=== PATIENT | male | born 1960 | race Asian ===

== ENCOUNTER 2021-08-26 17:35 | Inpatient (IN) | payer OTHER ==
[~2021-08-26] VITALS: Ht 175.3 cm; Wt 77.6 kg
[~2021-08-26 17:35] MED LIST: VANCOMYCIN 1.25 GM in IV D5W 250 ML IV ONE
--- NOTE | 2021-08-26 17:45 | NUR ---
BIB RA39 FROM HOME FOR SEVERE BILATERAL FOOT ULCERS/GANGRENE, R WORSE THAN L. PER EMS, BS WAS 250. AAOX2, BREATHING EVEN AND UNLABORED. TO ER BED 7, ON MONITOR. MD AT BEDSIDE.
--- NOTE | 2021-08-26 17:50 | NUR ---
MOVE SHEET SUBMITTED
[2021-08-26] MEDS ORDERED: IV NS 0.9% 1,000 ML IV ONE (18:00)
[2021-08-26] MEDS ORDERED: VANCOMYCIN HCL 1.25 GM in IV D5W 260 ML IV ONE (18:00)
--- NOTE | 2021-08-26 18:00 | NUR ---
BS 494. AWARE
--- NOTE | 2021-08-26 19:03 | NUR ---
URINE SAMPLE OBTAINED AND SENT TO LAB
[2021-08-26 19:13] LABS: BILIRUBIN,TOTAL 0.6 mg/dL (0.2-1.0); CALCIUM, SERUM 9.1 mg/dL (8.5-10.1); POTASSIUM 4.4 mmol/L (3.5-5.1)
[2021-08-26 19:20] LABS: ALBUMIN 1.4 g/dL (3.4-5.0)
[2021-08-26 19:41] LABS: BILIRUBIN,URINE NEGATIVE (NEGATIVE); COLOR,URINE YELLOW (YELLOW); LEUKOCYTE ESTERASE ,URINE NEGATIVE (NEGATIVE); NITRITE, URINE NEGATIVE (NEGATIVE); PH,URINE 5.5 (5.0-8.0); PROTEIN,URINE NEGATIVE (NEGATIVE); UGLUCOSE >=1000 mg/dL (NEGATIVE); UROBILINOGEN,URINE 0.2 EU/dL (0.2)
--- NOTE | 2021-08-26 19:41 | NUR ---
COVID SAMPLE OBTAINED AND SENT TO LAB
[2021-08-26 19:48] LABS: BACTERIA,URINE None seen /HPF (None Seen); MUCUS,URINE Few /LPF (None Seen); RBC,URINE 81-100 /HPF (0-2); SQUAMOUS EPITHELIAL CELL,UR Few /HPF (None Seen)
[2021-08-26 20:11] LABS: BASOPHILS % (AUTO) 0.2 % (0.0-2.0); EOSINOPHILS % (AUTO) 0.1 % (0.0-6.0); HEMATOCRIT 35 % (39-51); HEMOGLOBIN 11.4 g/dL (13.5-17.5); LYMPHOCYTES # (AUTO) 1.2 K/uL (0.8-4.8); LYMPHOCYTES % (AUTO) 9.1 % (20.0-44.0); MEAN CORPUSCULAR HGB CONC 33 g/dl (31.0-36.0); MEAN CORPUSCULAR VOLUME 90 fL (80-96); MONOCYTES # (AUTO) 0.6 K/uL (0.1-1.30); MONOCYTES % (AUTO) 4.2 % (2.0-12.0); NEUTROPHILS # (AUTO) 11.4 K/uL (1.8-8.9); NEUTROPHILS % (AUTO) 86.4 % (43.0-81.0); PLATELET COUNT (AUTO) 317 K/uL (150-450); RED BLOOD CELL COUNT(AUTO) 3.82 MIL/uL (4.5-6.0); WHITE BLOOD COUNT (AUTO) 13.2 K/uL (4.3-11.0)
--- NOTE | 2021-08-26 20:26 | NUR ---
PANEL PAGED PER DR CARUSO.
[2021-08-26] MEDS ORDERED: Z GUARD REMEDY 4 OZ OINT TP PRN (21:00)
[2021-08-26] MEDS ORDERED: HYDROCODONE/APAP 5/325MG TABLET PO PRN (21:00)
[2021-08-26] MEDS ORDERED: MAG HYDROX/AL HYDROX/SIMETH 30 ML UDC PO PRN (21:00)
[2021-08-26] MEDS ORDERED: MAGNESIUM HYDROXIDE 30 ML UDC PO PRN (21:00)
[2021-08-26] MEDS ORDERED: ONDANSETRON HCL/PF 4 MG/2 ML VIAL IVP PRN (21:00)
[2021-08-26] MEDS ORDERED: ACETAMINOPHEN 325 MG TABLET PO PRN (21:00)
[2021-08-26] MEDS ORDERED: DEXTROSE 50%-WATER 50 ML DISP.SYRIN IV PRN (21:00)
--- NOTE | 2021-08-26 21:38 | NUR ---
BED 323-2
--- NOTE | 2021-08-26 21:42 | NUR ---
CALLED FLOOR, SAID NURSE IS BUSY. WILL GIVE BACK CALL IN 15 MINS
--- NOTE | 2021-08-26 21:56 | NUR ---
REPORT GIVEN TO JAMES GANDHI
--- NOTE | 2021-08-26 22:24 | NUR ---
PT TRANSFERRED TO FLOOW FOLLOWING ACLS PROTOCOL. PT REMAINED STABLE THROUGHOUT TRANSFER.
[2021-08-26] MEDS ORDERED: MEROPENEM 500 MG in IV NS 0.9% 50 ML IV ONE (22:30)
--- NOTE | 2021-08-26 22:50 | NUR ---
RN NOTES RECEIVED PATIENT FROM ER WITH DX. WET TO DRY GANGRENE A/OX3, BILATERAL FOOT GANGRENE, SKIN ASSESSMENT DONE, ADMISSION INSTRUCTIONS DONE, CALL LIGHT WITHIN REACH, SIDERAILSUPX2, WILL CONTINUE TO MONITOR
[2021-08-26 23:00] VITALS: BP 147/86
[2021-08-26] MEDS: INSULIN REGULAR, HUMAN 100 UNIT/ML 3 ML VIAL SQ PRN (23:32)
[2021-08-26] MEDS: ENOXAPARIN SODIUM 40 MG/0.4 ML DISP.SYRIN SQ SCH (23:40)
[2021-08-26] MEDS: BLOOD SUGAR DIAGNOSTIC 1 EACH STRIP IN SCH (23:41)
[2021-08-26] MEDS ORDERED: MEROPENEM 500 MG VIAL IV ONE (23:56)
--- NOTE | 2021-08-27 | NUR ---
RN NOTES BLOOD SUGAR-433 20 UNITS OF INSULIN GIVEN PER INSULIN PROTOCOL, RAUL RAMIREZ-PACKING INSPECTOR IS AWARE, NO FURTHER ORDER
[2021-08-27] MEDS: IV NS 0.9% 1,000 ML IV PRN ×2 (00:05→19:16)
[2021-08-27] MEDS: BLOOD SUGAR DIAGNOSTIC 1 EACH STRIP IN SCH ×3 (06:06→17:36)
--- NOTE | 2021-08-27 06:23 | NUR ---
RN NOTES AWAKE, DENIES PAIN, NO SOB, CALL LIGHT WITHIN REACH, SIDERAILSUPX2, PT. NEEDS ATTENDED
[2021-08-27 06:27] LABS: BASOPHILS % (AUTO) 0.1 % (0.0-2.0); EOSINOPHILS % (AUTO) 0.5 % (0.0-6.0); HEMATOCRIT 31 % (39-51); HEMOGLOBIN 10.5 g/dL (13.5-17.5); LYMPHOCYTES # (AUTO) 1.8 K/uL (0.8-4.8); LYMPHOCYTES % (AUTO) 13.6 % (20.0-44.0); MEAN CORPUSCULAR HGB CONC 34 g/dl (31.0-36.0); MEAN CORPUSCULAR VOLUME 88 fL (80-96); MONOCYTES # (AUTO) 0.6 K/uL (0.1-1.30); MONOCYTES % (AUTO) 4.7 % (2.0-12.0); NEUTROPHILS # (AUTO) 10.8 K/uL (1.8-8.9); NEUTROPHILS % (AUTO) 81.1 % (43.0-81.0); PLATELET COUNT (AUTO) 296 K/uL (150-450); RED BLOOD CELL COUNT(AUTO) 3.48 MIL/uL (4.5-6.0); WHITE BLOOD COUNT (AUTO) 13.4 K/uL (4.3-11.0)
[2021-08-27] MEDS: INSULIN REGULAR, HUMAN 100 UNIT/ML 3 ML VIAL SQ PRN ×2 (06:41→11:45)
[2021-08-27 06:54] LABS: MAGNESIUM 1.9 mg/dL (1.8-2.4); PHOSPHORUS 3.3 mg/dL (2.5-4.9)
[2021-08-27] MEDS ORDERED: MEROPENEM 500 MG in IV NS 0.9% 50 ML IV ONE (07:30)
[2021-08-27 07:49] LABS: THYROID STIMULATING HORMONE 1.801 uIU/mL (0.358-3.74)
--- NOTE | 2021-08-27 07:56 | NUR ---
MS RN OPENING NOTE PATIENT IS AWAKE IN BED. A/O X3. NO S/SX OF ACUTE DISTRESS. NO SOB. BREATHING IS EVEN AND UNLABORED ON ROOM AIR, TOLERATING WELL. IV ACCESS LFA #20 AND RAC#18 PATENT AND INTACT WITH NS RUNNING @75MLS/HR. SAFETY MEASURES IN PLACE WITH BED LOCKED AND IN LOW POSITION WITH SIDE RAILS UP X 2. WILL CONTINUE TO MONITOR PATIENT THROUGHOUT SHIFT.
[2021-08-27] MEDS: PANTOPRAZOLE 40 MG TABLET.DR PO SCH (08:06)
[2021-08-27] MEDS: VANCOMYCIN 1 GM in IV D5W 250 ML IV SCH ×2 (08:07→19:16)
--- NOTE | 2021-08-27 09:17 | NUR ---
MS RN NOTE MERREM 500MG WAS GIVEN LAST NIGHT AT 2358 BY NIGHT NURSE
[2021-08-27] MEDS: MEROPENEM 500 MG in IV NS 0.9% 100 ML IV SCH ×2 (13:00→21:03)
[2021-08-27] MEDS ORDERED: DEXTROSE 50%-WATER 50 ML DISP.SYRIN IV PRN (14:00)
[2021-08-27] MEDS ORDERED: INSULIN REGULAR, HUMAN 100 UNIT/ML 3 ML VIAL SQ PRN (14:00)
--- NOTE | 2021-08-27 16:30 | NUR ---
SS Consult: SS consult requested for homelessness and self-neglect. DAVIDSON met with pt. bedside and the pt. is alert & oriented x 3. The pt. appears unkempt with gangrene on both feet. Per EMR, the pt. was admitted to [facility] for elevated blood sugar levels and severe bilateral foot ulcers/ gangrene. The pt. stated he called the paramedics when his blood sugars monitor read "high". SW explored pt.'s living situation. Pt. stated he lives alone at home [[address] [facility] [address]]. DAVIDSON asked pt. to clarify as he told the MD that he recently lost his place and was now living with a friend. Pt. nodded yes. SW asked pt. is this if his friend's address and pt. nodded yes. SW asked pt. to provide friend name and address. Pt. stated his friend's name is Paras [phone]. Possible pain as he is grimacing throughout interview, pt. does not provide much information upon interview. Pt. denies drug or alcohol use. pt. denies current SI/HI and denies hallucinations. Pt. stated he receives SSI and per pt. he is independent with most activities of daily living. Plan: DAVIDSON asked pt. ifhe is willing to go to a SNF for wound healing. Pt. is agreeable. Per CM notes, Dr. Cardenas asked for SNF placement for possible IV antibiotics and wound healing. CM will follow up. DAVIDSON provided pt. with homeless and senior resources and pt. acepted them. Pt. refused to sign homeless waiver and DAVIDSON filed it in pt.'s chart. DAVIDSON will follow up and makes APS report for self neglect. ABUSE PREVENTION: ELDER ABUSE HOTLINE (17/01) ADULT PROTECTIVE SERVICES HOTLINE LONG-TERM CARE [facility] Region AREA ON AGING (HOTLINE) ADULT DAY HEALTH CARE CARE CENTERS: Private pay or Medi-india funded adult day care [place] Adult [facility] , [facility] , [facility] Adult Care Center , [facility] Day Health Care , [facility] Day [facility] Care , [facility] Adult Daycare Center , [facility] Generation Center , [facility] , [place] ALZHEIMERS DISEASE/DEMENTIA: Alzheimers Association Helpline [facility] Chapter www.alz.org/[facility] Department of Aging www.lacity.org Family Caregiver [place] www.caregiver.org [place] Caregiver Resources Center/Family Support www.[facility].org CANCER RESOURCES: Ethiopian Cancer Society www.cancer.org Cancer Support Community www.CancerSupportVvsb.org: CancerCare www.cancercare.org [facility] Cancer Support [place] www.[facility].org FOR[facility]LY [facility] HEALTH ASSOCIATIONS: AARP www.aarp.org ALS Association (ask for Arminda) www.als.org Ethiopian Diabetes Association www.diabetes.org Ethiopian Heart Association www.heart.org Ethiopian Lung Association www.lungusa.org Ethiopian Parkinson Disease Association www.apdaparkinson.org Ethiopian [place] , www.redcross.org Arthritis Foundation www.arthritis.org Crohns & Colitis Foundation of Ethiopian www.ccfa.org/chapters/agapito National Multiple Sclerosis Society www.nationalmssociety.org Myasthenia Gravis Foundation www.myasthenia-ca.org National Stroke Association www.stroke.org CONSERVATORSHIP & GUARDIANSHIP: AARP Montserrat Brito Legal Services Center for Health Care Rights Eldercare Information and Referral Cloth Bleaching Range Tender [facility], [place] [facility]: [facility] Referral Service [facility] Legal Services Office of the Public Guardian [place] EYESIGHT DISORDER RESOURCES: Ethiopian Macular Degeneration Foundation [facility] www.thomas b. finan center.org GRIEF AND BEREAVEMENT RESOURCES: The [facility] Place , Medical Center Hospital THE HAWKS Connection , [facility] Bereavement Center , [place] HEARING DISORDER RESOURCES: [place] Telephone Access Program Deaf and Disabled Telecommunications Program www.ddtp.[facility].ca.gov HearRx Hearing Centers ([place]) Better Hearing Systems , [place] GLAD ([facility] Agency on Deafness) V/ TTY; Cracking Machine Operator , [facility] Hearing [facility], [place] -low income hearing aid assistance www.[place] Fertilityhearingfoundation.org [place] Hearing Care , Dany HELP AT HOME CAREGIVER SUPPORT: In Home Support Services (Must have Medi-[place] to be eligible) *Ask for a list of agencies that provide services to assist with care in the home. Local Senior Centers also have listings of care providers. HOME SAFETY MODIFICATIONS AND EQUIPMENT: Senior centers have additional referrals. [place] Housing and Community Investment Dept. Handyworker Program (low income) or Visit http://hcidla.lacity.org/ita-kuomww-is for more information National Seating and Mobility and/or ; Forever Active www.foreverLinkPad Inc.med.Nexthink Stay Home Safe www.Stayhomesafe.com LIFE ALERT RESPONSE SYSTEM: MindSnacks Services 062-332-0180 www. WindPipe Life Alert 265-700-2540 wwwApplect Learning Systems Pvt. Ltd. Life Station 193-603-3412 www.Diarize.Nexthink Safe Return [phone] www.alz.or/safereturn Cell Phones for Seniors www.Nusirt MEALS AND FOOD PROGRAMS: [place] Meals on Wheels [phone] Grassflat Meals on Wheels [phone] [facility] [phone] [place] to the Homebound [phone] [place] to the Homebound [phone] [facility] to the Homebound [phone] Located Within [facility] to the Homebound [phone] [facility] Carl Vieyra [phone] [facility] [phone] ONE Generation [phone] [facility] [phone] [facility] [phone] Meals on Wheels [phone] For all ages: $6.85/ meal w side. Delivered M-F from 10 am-1pm. Application and payment is done over the phone. Frozen meals available for weekends. Emergency Food [facility] [phone] [facility] Payment Specialist [phone] [facility] [phone] [facility]- Brown bag lunches [phone] [facility] [phone] MEAL/GROCERY DELIVERY PROGRAMS: [facility] [phone]- [facility] [phone]- [facility] Magic Kitchen [phone] Moms Meals [phone] (ask Noguera for Discount Select grocery stores may provide delivery. MEDICAL INSURANCE SUPPORT SERVICES: Center for Health Care Rights [phone] Health Insurance Counseling/Advocacy Programs (HICAP)-Must have Medicare. Offers counseling for Medi-[place] eligibility [phone] Department of Public Payment Specialist [phone] www.[facility].ca.gov Medicare 867-966-9067 www.socialsecurity.org Social Security [phone] SENIOR ACTIVITY PROGRAMS: *Contact a local senior center, adult school, recreation facility or community college for education, fitness, recreation, and social programs. Aquatic Therapy and Adapted Exercise programs through [facility] [phone] Encore at [facility] [phone] www.[facility]/encore U- Senior Friends [phone] [place] Senior Programs [phone] www.oasisnet.org Suddenly 65 www.fejvhlhj73.com SENIOR CENTERS: [facility] [phone] [place] And More[place] ParishesCarl [phone] [facility] [phone] [facility] [phone] [facility] [phone] [facility] [phone] [facility] [phone] [facility] And [facility] Care Services [phone] One Generation, [facility] [phone] [facility] [phone] [facility] [phone] [facility] [phone] [facility] [place] [phone] TRANSPORTATION: Local [facility] Centers may have applications for transportation programs and additional resources. ACCESS Services [phone] Transportation for seniors and disabled persons 7 days a week requiring 254 hr. advance reservation. Must apply and register for program [place] eligible. Renewable Funding RIDE [phone] or [phone] Transportation for seniors and persons with ADA card/metro disabled card in the [facility]. M-F only. Must register for services. ONE GENERATION [phone] Serves 65 years + in conjunction with Privaliae program. Must be registered with both programs. A to B Transport [phone] Provides wheelchair/gurney van service. Adult Medical Transport [phone] Accepts [facility]-india with prior authorization. Care Van [phone] Provides wheelchair Transport. [facility] Wide Transportation [phone] Provides gurney service Gentle Care [phone] Gurney Transport. [facility] Town Transportation [phone] wheelchair & gurney transport [facility] Transportation [phone] wheelchair & gurney transport [place] Non-Emergency Transport [phone] wheelchair & gurney transport [facility] Living [place] [phone] Short Term Transportation primarily for adults with disabilities on social security income. Nominal fee may apply and a reservation is required. PonoMusic Cab [phone] or [phone] MedAware Systemsi [phone] [place] [address] Referral Services -[phone] For additional programs & services VETERANS RESOURCES: Submissions for Aid and Attendance should be done directly to Federal VA office locatd at : [address] [phone] National Caregiver Support Line [phone] [facility] Veterans Services Field Office [phone] [place] Department of [place] Affairs [phone] Pension Information [phone] Year-round shelters: [place] [address] [place] [address] ; [place] Rescue [place] [address] [place] [address]; [place] Rescue [id number] [facility]. [facility] [address] Winter Shelters: SPA 2 | [facility] Leahks Henryrovider: Jana of the [place] Address: Confidential (call for location ) Population Served: Coed # of Beds: 57 SPA 4 | [facility] Provider: Home at Last Address: [address] [facility], [address] # of Beds: 49 Population Served: Coed SPA 6 | [facility] Provider: Home at Last Address: [address] [facility], [address] # of Beds: 49 Population Served: Coed Fabrizio Pressley [facility] Provider: Abby Pressley MTD Address: [address] [facility] [address] # of Beds: 20 Population Served: Women WILLAM Facility Provider: Home at Last Address: [address] [facility] [address] # of Beds: 30 Population Served: Women SPA 8 | [facility] Provider: Nikky casey Cher Address: [address] [facility] [address] # of Beds: 65 Population Served: Coed Hygiene: [facility]: [address] [facility] ; [place] [facility] [address] [facility] ; [facility] 9606 [facility] . Food Resources: [place] Food Pantry at [facility]- [address] [facility]; Meet Each Need with Dignity ([facility]) [address] [facility]; [facility] Food Pantry 8410 [facility]; [facility] Health [facility] 6499 [facility]. Mental Health resources provided: [facility] [address] [place] [address] ; [facility] Health Center, Inc. [address] [facility] [address], [place] [address] ; Sabra Avendano [facility] [address] [place] [address] ; [facility] [place], [place] [phone] Healthcare Clinics: [facility] [address], [address] [place]. [place] ; [facility] [address] [facility] [address] [place] [address]; [facility] [address] [place] [phone] Counseling--Outpatient [facility] [address] [facility], [place] [address] (Specializes in in-depth psychotherapy for emotional distress: anxiety, depression, interpersonal conflicts, life transitions, childhood abuse) [facility] [address] [place] [address] (Assist with solving problem marital difficulties, separation & divorce, aging parents, & grief, chronic & terminal illness) [facility] [address] [place] [address] (Deal with loss & grief, anxiety, marital difficulties) Homebound/Mental Health Services [address], [address] [place] [address] (Provide in-home mental services to people who are incapable of leaving their homes) Organization for Needs of the Elderly Senior Service/Resource Center [address] [place] [address] [facility] [address] [facility] [place] [address] PSYCHIATRIC OUTPATIENT SERVICES [facility] Partial Hospitalization and Intensive Outpatient Program (Managed Care and [place] Only)[address] George García. [facility] [phone] [facility] Partial Hospitalization and Outpatient [id number] [address] [place], [place] [phone] CARL [facility] [place] [id number] [place], [place] [phone] [facility] Carl Reynolds Partial Hospitalization and Outpatient [id number] Tray Leary, [phone] Substance Abuse resources provided included: [facility] Substance Abuse Self-Helpline ([facility]) ; CRI -HELP [address] [facility]. [place] [address] ; [facility] [address] [facility] [address] ; [facility] Rehabilitation Program [address] [facility] [place] [address] ; [facility] [place] 400 [facility] [phone] ; [facility] 4940 [facility] [address] ; Sammie [facility] [place] 909 [facility] [phone] ; [facility] Substance Abuse Helpline([facility] ; Action Family Counseling ; [facility] [place] Elizabeth; Cri-Help [place]; I-ADARP Inter Agency Drug Abuse Recovery Carl Reynolds; [place] Womens Recovery Ozan; [place] Ozan; [facility] Treatment [place]; [facility] [place]; Alcoholics Anonymous -SFV; Ao-Rwfs-Ilypvvd ; Marijuana Anonymous -SFV; Narcotics Anonymous www.na.org;
[2021-08-27] MEDS: *INSULIN REGULAR(HUMULIN R)HUM 100 UNIT/ML VIAL SQ PRN ×2 (17:35→22:15)
[2021-08-27] MEDS: BLOOD SUGAR DIAGNOSTIC 1 EACH STRIP VI SCH ×2 (17:36→21:03)
--- NOTE | 2021-08-27 17:36 | NUR ---
RN NOTE BS 269; 9 UNITS OF REGULAR INSULIN GIVEN
--- NOTE | 2021-08-27 18:58 | NUR ---
MS RN CLOSING NOTE PATIENT IS AWAKE IN BED. A/O X2-3. NO S/SX OF ACUTE DISTRESS. NO SOB. BREATHING IS EVEN AND UNLABORED ON ROOM AIR, TOLERATING WELL. IV ACCESS LFA #20 AND RAC#18 PATENT AND INTACT WITH NS RUNNING @75MLS/HR. SAFETY MEASURES IN PLACE WITH BED LOCKED AND IN LOW POSITION WITH SIDE RAILS UP X 2. WILL ENDORSE CONTINUITY OF CARE TO ONCOMING SHIFT.
--- NOTE | 2021-08-27 19:20 | NUR ---
MS/RN OPENING NOTE RECEIVED PATIENT RESTING IN BED. AWAKE, ALERT AND ORIENTED X 2. ABLE TO MAKE NEEDS KNOWN. DENIES PAIN AT THIS TIME. CONTINUES ON ROOM AIR WITH NO S/SX OF RESPIRATORY DISTRESS NOTED. IV ACCESS TO RIGHT AC #18G AND LEFT FOREARM #20G BOTH INTACT AND PATENT. CONTINUES ON IVF NS @ 75ML/HR. CONTINUES ON IV ABX. PATIENT TO BE NPO AFTER MIDNIGHT FOR GIS ENGINEER PROCEDURE IN AM. PATIENT AWARE AND AGREEABLE. CALL LIGHT WITHIN REACH. ASPIRATION, FALL AND SAFETY PRECAUTIONS MAINTAINED. WILL CONTINUE TO MONITOR.
[2021-08-27 20:00] VITALS: BP 143/77
[2021-08-27] MEDS: ENOXAPARIN SODIUM 40 MG/0.4 ML DISP.SYRIN SQ SCH (21:00)
--- NOTE | 2021-08-27 21:51 | NUR ---
MS/RN NOTE PATIENT TO HAVE LOWER EXTREMITY ANGIOGRAM WITH POSSIBLE INTERVENTION IN AM. PER DR. SHERIDAN - [facility].
--- NOTE | 2021-08-27 22:00 | NUR ---
MS/RN NOTE PATIENTS BLOOD SUGAR IS 324 @ 2200. WILL ADMINISTER INSULIN PER SS ORDER. PATIENT TO BE NPO AFTER MIDNIGHT. WILL SUPPLY SNACK PRIOR TO MIDNIGHT.
[2021-08-28] MEDS: MEROPENEM 500 MG in IV NS 0.9% 100 ML IV SCH ×2 (04:47→13:57)
--- NOTE | 2021-08-28 06:10 | NUR ---
MS/RN CLOSING NOTE PATIENT CURRENTLY RESTING IN BED. AWAKE, ALERT AND ORIENTED X 2. ABLE TO MAKE NEEDS KNOWN. DENIES PAIN AT THIS TIME. CONTINUES ON ROOM AIR WITH NO S/SX OF RESPIRATORY DISTRESS NOTED. IV ACCESS TO RIGHT AC #18G AND LEFT FOREARM #20G BOTH INTACT AND PATENT. CONTINUES ON IVF NS @ 75ML/HR. CONTINUES ON IV ABX. PATIENT HAS BEEN NPO SINCE MIDNIGHT FOR SAT TUTOR PROCEDURE TODAY. PATIENT AWARE AND AGREEABLE. ALL CONSENTS SIGNED AND IN CHART. PROCEDURE CHECKLIST COMPLETED. CALL LIGHT WITHIN REACH. ASPIRATION, FALL AND SAFETY PRECAUTIONS MAINTAINED. WILL ENDORSE PLAN OF CARE TO ONCOMING SHIFT.
--- NOTE | 2021-08-28 06:22 | NUR ---
MS/RN NOTE PATIENTS BLOOD SUGAR LEVEL THIS AM IS 354. PATIENT HAS BEEN NPO SINCE MIDNIGHT. PATIENT WILL BE NPO TODAY FOR PROCEDURE LATER. HOLDING INSULIN SS FOR NPO STATUS. Addendum: 08/28/21 at 0647 by IMAN BILLINGS RN HALI RAMIREZ AWARE.
[2021-08-28] MEDS: BLOOD SUGAR DIAGNOSTIC 1 EACH STRIP VI SCH ×2 (06:26→12:00)
[2021-08-28] MEDS ORDERED: IV NS 0.9% 1,000 ML ONE ×2 (06:30→06:31)
[2021-08-28] MEDS ORDERED: IODIXANOL 300 ML IV ONE (06:31)
[2021-08-28] MEDS ORDERED: NITROGLYCERIN IN 5 % DEXTROSE 0 ML IV ONE (06:32)
[2021-08-28] MEDS ORDERED: LIDOCAINE HCL/PF 1% 30 ML SDV ONE (06:32)
--- NOTE | 2021-08-28 06:50 | NUR ---
MS/RN NOTE PATIENT WENT DOWN TO CARDIAC NEUROLOGY DIRECTOR AT APPROX. 0650.
[2021-08-28 07:14] LABS: BASOPHILS % (AUTO) 0.2 % (0.0-2.0); EOSINOPHILS % (AUTO) 0.5 % (0.0-6.0); HEMATOCRIT 31 % (39-51); HEMOGLOBIN 10.4 g/dL (13.5-17.5); LYMPHOCYTES # (AUTO) 1.8 K/uL (0.8-4.8); LYMPHOCYTES % (AUTO) 18.3 % (20.0-44.0); MEAN CORPUSCULAR HGB CONC 33 g/dl (31.0-36.0); MEAN CORPUSCULAR VOLUME 90 fL (80-96); MONOCYTES # (AUTO) 0.6 K/uL (0.1-1.30); MONOCYTES % (AUTO) 6.4 % (2.0-12.0); NEUTROPHILS # (AUTO) 7.4 K/uL (1.8-8.9); NEUTROPHILS % (AUTO) 74.6 % (43.0-81.0); PLATELET COUNT (AUTO) 255 K/uL (150-450); RED BLOOD CELL COUNT(AUTO) 3.46 MIL/uL (4.5-6.0); WHITE BLOOD COUNT (AUTO) 9.9 K/uL (4.3-11.0)
[2021-08-28] MEDS ORDERED: FENTANYL PF 100MCG/2ML AMPUL ONE (07:19)
[2021-08-28] MEDS ORDERED: MIDAZOLAM HCL 2 MG/2ML VIAL ONE (07:19)
--- NOTE | 2021-08-28 07:20 | NUR ---
MS/RN OPENING NOTE PATIENT AT RADIOLOGY DEPARTMENT FOR SCHEDULED PROCEDURE. VERBAL ENDORSEMENT RECEIVED FROM OUTGOING NURSE. WILL WAIT FOR PATIENT.
[2021-08-28 07:40] LABS: CALCIUM, SERUM 9.6 mg/dL (8.5-10.1); CREATININE 0.8 mg/dL (0.6-1.3); MAGNESIUM 1.8 mg/dL (1.8-2.4); PHOSPHORUS 2.9 mg/dL (2.5-4.9); POTASSIUM 4.2 mmol/L (3.5-5.1)
[2021-08-28] MEDS ORDERED: NICARDIPINE HCL 25 MG/10 ML VIAL IV ONE (07:48)
--- NOTE | 2021-08-28 08:30 | NUR ---
MS/RN NOTE PATIENT BACK FROM PROCEDURE, ALERT AND ORIENTED X 2-3. ABLE TO MAKE NEEDS KNOWN. DENIES PAIN AT THIS TIME. CONTINUES ON ROOM AIR WITH NO S/SX OF RESPIRATORY DISTRESS NOTED. IV ACCESS TO RIGHT AC #18G AND LEFT FOREARM #20G BOTH INTACT AND PATENT. CONTINUES ON IVF NS @ 75ML/HR. COMFROT MEASURES PROVIDED. CALL LIGHT WITHIN REACH. BED ON LOWEST LOCKED POSITION. ASPIRATION, FALL AND SAFETY PRECAUTIONS MAINTAINED. WILL CONTINUE TO MONITOR.
--- NOTE | 2021-08-28 09:21 | NUR ---
WOUND CARE CONSULT: PT JUST BACK FROM PROCEDURE AND LYING FLAT PER RN. PT NOT TURNED FOR FULL SKIN ASSESSMENT. NECROTIC WOUNDS NOTED TO LOWER EXTREMITIES, PRESENT ON ADMISSION. DR JOY CALLED FOR DPM CONSULT. IN AGREEMENT WITH PLAN OF CARE.
[2021-08-28] MEDS: PANTOPRAZOLE 40 MG TABLET.DR PO SCH (09:48)
[2021-08-28] MEDS: VANCOMYCIN 1 GM in IV D5W 250 ML IV SCH (09:48)
[2021-08-28] MEDS ORDERED: IV NS 0.9% 1,000 ML IV ONE (11:00)
--- NOTE | 2021-08-28 12:19 | NUR ---
APS Report made for self-neglect. APS Intake #[id number]
[2021-08-28] MEDS ORDERED: ANESTHESIA TRAY IN PYXIS 1 EA TRAY MC ONE (12:48)
[2021-08-28] MEDS ORDERED: DAKINS HALF STRENGTH (0.25%) 480 ML BOTTLE TOP SCH (13:30)
--- NOTE | 2021-08-28 14:00 | NUR ---
MS/RN NOTE PATIENT SEEN BY DR. LAZAR AND DR. PATRICIA. MD SPOKE WITH PATIENT FOR TOTAL OF ALMOST 1 HOUR WITH VINCENTIAN BILINGUAL RECEPTIONIST TO EXPLAIN THE PLAN OF POSSIBLE SURGERY THAT WILL REQUIRE AMPUTATION. PATIENT REFUSING AMPUTATION BUT AGREED TO HAVE INCISION AND DRAINAGE. CONSENT SECURED AND ATTACHED TO CHART. MD WILL SCHEDULE PATIENT FOR POSSIBLE SURGERY. WILL CONTINUE TO [facility] PATIENT.
[2021-08-28] MEDS ORDERED: VANCOMYCIN 0.75 GM in IV D5W 250 ML IV SCH (16:00)
--- NOTE | 2021-08-28 16:20 | NUR ---
MS/RN NOTE WITH MD ORDER FOR TRANSFER TO [facility] PER MD ORDER. PATIENT NOTIFIED AND VERBALIZED UNDERSTANDING AND APPRECIATION. PATIENT ENDORSED TO RN MONIQUE FOR CONTINUITY OF CARE/ HIGHER LEVEL OF CARE. WILL KEEP PATIENT'S IV ACCESS PER RN REQUEST. PATIENT PICKED UP BY EMT VIA GURNEY. IN STABLE CONDITON. ENDORSED ACCORDINGLY.
[2021-08-28 16:51] VITALS: BP 152/91
[2021-08-28] MEDS ORDERED: INSULIN GLARGINE, 100 UNIT/ML CARTRIDGE SQ SCH (22:00)
== END 2021-08-28 17:12 | disposition short-term general hospital (02) | DRG 197 ==
LOC: ER 17:37 → MED 22:05
PROVIDERS: ADMIT Registered Nurse; ATTEND Student in an Organized Health Care Education/Training Program
PROC: B41GYZZ Fluoroscopy of Left Lower Extremity Arteries using Other Contrast (ICD-10-PCS; 2021-08-26)
PROC: B410YZZ Fluoroscopy of Abdominal Aorta using Other Contrast (ICD-10-PCS; principal; 2021-08-28)
PROC: B41FYZZ Fluoroscopy of Right Lower Extremity Arteries using Other Contrast (ICD-10-PCS; 2021-08-28)
DX: E11.52 Type 2 diabetes mellitus with diabetic peripheral angiopathy with gangrene (principal); G93.49 Other encephalopathy; E43 Unspecified severe protein-calorie malnutrition; E11.42 Type 2 diabetes mellitus with diabetic polyneuropathy; E88.09 Other disorders of plasma-protein metabolism, not elsewhere classified; E87.1 Hypo-osmolality and hyponatremia; L03.115 Cellulitis of right lower limb; L97.519 Non-pressure chronic ulcer of other part of right foot with unspecified severity; L97.529 Non-pressure chronic ulcer of other part of left foot with unspecified severity; M86.9 Osteomyelitis, unspecified; E11.621 Type 2 diabetes mellitus with foot ulcer; D72.829 Elevated white blood cell count, unspecified; E11.622 Type 2 diabetes mellitus with other skin ulcer; E11.65 Type 2 diabetes mellitus with hyperglycemia; E11.69 Type 2 diabetes mellitus with other specified complication; I10 Essential (primary) hypertension; Z20.822 Contact with and (suspected) exposure to COVID-19; E11.628 Type 2 diabetes mellitus with other skin complications; R74.01 Elevation of levels of liver transaminase levels; F10.10 Alcohol abuse, uncomplicated; Y90.9 Presence of alcohol in blood, level not specified; D64.9 Anemia, unspecified; L02.611 Cutaneous abscess of right foot; M77.30 Calcaneal spur, unspecified foot; Z59.00 Homelessness unspecified; Z91.19 Patient's noncompliance with other medical treatment and regimen
CPT/HCPCS: 36415; 73610-TC; 73630-TC; 75625; 80048-TC; 80053-TC; 80061-TC; 80202-TC; 81001; 82962-TC; 83735-TC; 84100-TC; 84443-TC; 85025-TC; 85610-TC; 85652-TC; 85730-TC; 86140-TC; 87040-TC; 87070-TC; 87081-TC; 87186-TC; 93307-TC; 93926-TC; 97116-TC; 97530-TC; A6253; C9803; G0378; J1644; J1650; J1815; J2185; J2250; J3010; J3370; J3490; J7030; J7060; Q9967